=== PATIENT | female | born 1970 | race Two or more races ===

== ENCOUNTER 2021-07-24 19:30 | Inpatient (IN) | payer BC ==
[~2021-07-24] VITALS: Ht 157.5 cm; Wt 61.2 kg
[2021-07-24 19:30] VITALS: BP 114/68
[2021-07-24 20:00] VITALS: BP 114/68
[2021-07-24] MEDS ORDERED: ONDANSETRON HCL 4MG/2ML INJ IV PRN (21:15)
[2021-07-24] MEDS ORDERED: ACETAMINOPHEN 325MG TABLET PO PRN (21:15)
[2021-07-24] MEDS ORDERED: MORPHINE SULFATE 2 MG/ML CPJ (NOT FOR IM USE) IV PRN (21:15)
[2021-07-24] MEDS: DOCUSATE SODIUM 100MG CAPSULE PO SCH (21:48)
[2021-07-24] MEDS: HYDROCODONE/ACETAMINOPHEN 10/325MG TABLET PO PRN (21:49)
[2021-07-24 23:00] VITALS: BP 75/40
[2021-07-24] MEDS ORDERED: SODIUM CHLORIDE 0.9% 500 ML IV ONE (23:15)
[2021-07-24 23:26] LABS: BASOPHILS % 0.9 % (0.0-2.0); EOSINOPHILS % 2.4 % (0.0-5.0); HEMATOCRIT. 31.2 % (36.0-48.0); HEMOGLOBIN. 10.1 g/dL (12.0-16.0); MEAN CORPUSCULAR HEMOGLOBIN 26.1 pg (28.0-32.0); MEAN CORPUSCULAR VOLUME 80.3 fL (81.0-99.0); MEAN PLATELET VOLUME 7.2 fl (7.4-10.4); MONOCYTES % 6.4 % (2.0-8.0); NEUTROPHILS % 71.3 % (40.0-76.0); PLATELET 520 x1000/uL (130-400); RED BLOOD CELL COUNT 3.89 mill/uL (4.2-5.4); RED CELL DISTRIBUTION WIDTH 15.8 % (11.6-14.6)
[2021-07-24 23:30] LABS: CHLORIDE 104 mEq/L (98-107)
[2021-07-25] VITALS: BP 98/57
[2021-07-25] MEDS ORDERED: ASPI-1406 PO (03:10)
[2021-07-25] MEDS ORDERED: HYDR-4009 MT (03:10)
[2021-07-25] MEDS ORDERED: DOCU100T PO (03:10)
[2021-07-25] MEDS ORDERED: TOPUD PO (03:10)
[2021-07-25 04:00] VITALS: BP 101/58
[2021-07-25] MEDS: HYDROCODONE/ACETAMINOPHEN 10/325MG TABLET PO PRN ×3 (04:39→20:44)
[2021-07-25] MEDS ORDERED: HEPARIN 25,000 UNITS PREMIX 250 ML IV SCH ×2 (05:00→06:00)
[2021-07-25] MEDS ORDERED: HEPARIN BOLUS PRN aPTT 37-44 IV (06:00)
[2021-07-25] MEDS ORDERED: HEPARIN BOLUS PRN aPTT <36 IV (06:00)
[2021-07-25 07:56] VITALS: BP 138/78
[2021-07-25] MEDS: ASPIRIN 81MG TABLET PO SCH (09:07)
[2021-07-25] MEDS: DOCUSATE SODIUM 100MG CAPSULE PO SCH (09:07)
[2021-07-25 12:27] VITALS: BP 128/82
[2021-07-25 16:00] VITALS: BP 126/62
[2021-07-25] MEDS ORDERED: MAGNESIUM/ALUMINUM HYDROXIDE/SIMETHICONE 30ML UDC PO PRN (18:15)
[2021-07-25] MEDS ORDERED: CLONIDINE 0.1MG TABLET PO PRN (18:15)
[2021-07-25] MEDS ORDERED: IPRATROPIUM/ALBUTEROL 0.5-3(2.5)MG/3ML NEB HHN PRN (18:45)
[2021-07-25 20:00] VITALS: BP 122/67
[2021-07-26] VITALS: BP 101/57
[2021-07-26 04:00] VITALS: BP 109/54
[2021-07-26 06:01] LABS: BASOPHILS % 0.8 % (0.0-2.0); EOSINOPHILS % 4.6 % (0.0-5.0); HEMATOCRIT. 30.8 % (36.0-48.0); HEMOGLOBIN. 9.7 g/dL (12.0-16.0); LYMPHOCYTES % 23.9 % (20.0-50.0); MEAN CORPUSCULAR HEMOGLOBIN 25.6 pg (28.0-32.0); MEAN CORPUSCULAR VOLUME 81.3 fL (81.0-99.0); MEAN PLATELET VOLUME 7.3 fl (7.4-10.4); MONOCYTES % 7.5 % (2.0-8.0); NEUTROPHILS % 63.2 % (40.0-76.0); PLATELET 534 x1000/uL (130-400); RED BLOOD CELL COUNT 3.79 mill/uL (4.2-5.4); RED CELL DISTRIBUTION WIDTH 16.1 % (11.6-14.6)
[2021-07-26 06:25] LABS: CHLORIDE 107 mEq/L (98-107)
[2021-07-26 06:39] LABS: PHOSPHORUS 4.9 mg/dL (2.5-4.9)
[2021-07-26] MEDS: HYDROCODONE/ACETAMINOPHEN 10/325MG TABLET PO PRN ×2 (06:54→17:49)
[2021-07-26] MEDS: OMEPRAZOLE 20MG CAPSULE EXTENDED RELEASE PO SCH (06:54)
[2021-07-26 08:00] VITALS: BP 113/70
[2021-07-26] MEDS: DOCUSATE SODIUM 100MG CAPSULE PO SCH (08:28)
[2021-07-26] MEDS: ASPIRIN 81MG TABLET PO SCH (08:28)
[2021-07-26] MEDS ORDERED: IOHEXOL-350 100 ML BOTTLE ONE (11:28)
[2021-07-26 11:43] LABS: UCG SCREEN NEGATIVE
[2021-07-26 12:00] VITALS: BP 128/85
[2021-07-26] MEDS ORDERED: APIX5TAB MT ×3 (14:59→15:00)
[2021-07-26] MEDS ORDERED: APIX5TAB PO (14:59)
[2021-07-26 15:33] VITALS: BP 126/68
[2021-07-26] MEDS: APIXABAN 5 MG TABLET PO SCH (17:49)
[2021-07-26 20:00] VITALS: BP 130/76
[2021-07-27] VITALS: BP 108/59
[2021-07-27] MEDS: HYDROCODONE/ACETAMINOPHEN 10/325MG TABLET PO PRN ×2 (01:14→09:08)
[2021-07-27 04:00] VITALS: BP 119/62
[2021-07-27] MEDS: OMEPRAZOLE 20MG CAPSULE EXTENDED RELEASE PO SCH (06:55)
[2021-07-27 08:50] LABS: BASOPHILS % 0.9 % (0.0-2.0); EOSINOPHILS % 3.7 % (0.0-5.0); HEMATOCRIT. 30.5 % (36.0-48.0); HEMOGLOBIN. 9.9 g/dL (12.0-16.0); LYMPHOCYTES % 21.8 % (20.0-50.0); MEAN CORPUSCULAR HEMOGLOBIN 26.6 pg (28.0-32.0); MEAN CORPUSCULAR VOLUME 81.7 fL (81.0-99.0); MEAN PLATELET VOLUME 7.2 fl (7.4-10.4); MONOCYTES % 7.6 % (2.0-8.0); PLATELET 558 x1000/uL (130-400); RED BLOOD CELL COUNT 3.74 mill/uL (4.2-5.4); RED CELL DISTRIBUTION WIDTH 16.3 % (11.6-14.6)
[2021-07-27 08:58] LABS: CHLORIDE 106 mEq/L (98-107)
[2021-07-27 09:06] VITALS: BP 131/62
[2021-07-27] MEDS: ASPIRIN 81MG TABLET PO SCH (09:07)
[2021-07-27] MEDS: DOCUSATE SODIUM 100MG CAPSULE PO SCH (09:07)
[2021-07-27] MEDS: APIXABAN 5 MG TABLET PO SCH (09:07)
[2021-07-27 14:35] VITALS: BP 131/62
[2021-08-02] MEDS ORDERED: APIXABAN 5 MG TABLET PO SCH (17:00)
== END 2021-07-27 15:54 | disposition home or self-care (01) | DRG 300 ==
LOC: 6WST 19:30
PROVIDERS: ADMIT Internal Medicine Critical Care Medicine; ATTEND Internal Medicine Critical Care Medicine
DX: I82.B12 Acute embolism and thrombosis of left subclavian vein (principal); E44.0 Moderate protein-calorie malnutrition; D53.9 Nutritional anemia, unspecified; D75.839 Thrombocytosis, unspecified; I82.C12 Acute embolism and thrombosis of left internal jugular vein; I82.A12 Acute embolism and thrombosis of left axillary vein; I82.622 Acute embolism and thrombosis of deep veins of left upper extremity; Z20.822 Contact with and (suspected) exposure to COVID-19; D50.9 Iron deficiency anemia, unspecified; G54.0 Brachial plexus disorders; R74.01 Elevation of levels of liver transaminase levels; Z79.82 Long term (current) use of aspirin; Z90.710 Acquired absence of both cervix and uterus; Z79.899 Other long term (current) drug therapy; Z79.01 Long term (current) use of anticoagulants; Z68.24 Body mass index [BMI] 24.0-24.9, adult; Z85.038 Personal history of other malignant neoplasm of large intestine; Z85.42 Personal history of malignant neoplasm of other parts of uterus
CPT/HCPCS: 36415; 71275; 76700; 80048; 80053; 80076; 81025; 83735; 84100; 85025; 87426; 93970; A4565; J1644; J7040; Q9967

== ENCOUNTER → 2021-10-03 | Outpatient (CLI) | payer BC ==
[~2021-10-03] MED LIST: APIX5TAB MT; APIX5TAB PO; DOCU100T PO; GADOTERATE MEGLUMINE 5 MMOL/10 ML VIAL IV ONE; HYDR-4009 MT; TOPUD PO
== END | disposition home or self-care (01) ==
LOC: MRI 11:37
DX: R26.81 Unsteadiness on feet (principal); R53.1 Weakness; C56.9 Malignant neoplasm of unspecified ovary
CPT/HCPCS: 70553; A9577